=== PATIENT | male | born 2000 | race Caucasian/White ===

== ENCOUNTER → 2019-02-23 10:32 | Outpatient (CLI) | payer OTHER, SELFPAY ==
[2019-02-23 10:53] LABS: Influenza A and B by PCR Rapid Negative (Negative)
== END ==
PROVIDERS: Family Provider Physician Assistant; PCP Physician Assistant; Visit Provider Nurse Practitioner Family
DX: R50.9 Fever, unspecified (principal)
CPT/HCPCS: 87502

== ENCOUNTER → 2019-02-25 13:02 | Outpatient (CLI) | payer OTHER, SELFPAY ==
--- NOTE | 2019-02-25 13:05 | DI.CT.S_ITS ---
PROCEDURE: CT SOFT TISSUE NECK WO CON INDICATIONS: throat swelling /strep throat TECHNIQUE: Non-contrast 3.0 mm axial sections acquired from the sella to the aortic arch. Additional oblique axial 3.0 mm sections acquired through the pharynx. 3 mm thick coronal and sagittal reformats were generated. For radiation dose reduction, the following was used: automated exposure control. COMPARISON: None. FINDINGS: Image quality: Excellent. Lymph nodes: There are multiple enlarged cervical lymph nodes bilaterally. Vessels: Non-opacified vessels appear normal in caliber. Neck spaces: There is marked enlargement of adenoids and palatine tonsils. No drainable fluid collection. The oropharynx, nasopharynx, and pharynx demonstrate no mucosal lesions. The vocal cords, false vocal cords, pyriform sinuses, epiglottis, vallecula, and tongue base all appear normal. Extramucosal spaces appear unremarkable. Glands: The parotid and submandibular glands appear normal, without stones. Thyroid gland is normal. Miscellaneous: Visualized brain and orbits appear normal. Lung apices appear clear. Superficial soft tissues appear normal. IMPRESSION: 1. Enlargement of adenoids and palatine tonsils consistent with tonsillitis. There is no drainable fluid collections. 2. Cervical lymphadenopathy, most likely reactive. This finding is, however, nonspecific and may be secondary to infectious, inflammatory or neoplastic etiology. Recommend clinical correlation and follow up. Dictated by: Makayla Kim M.D. on 02/25/2019 at 14:10 Approved by: Makayla Kim M.D. on 02/25/2019 at 14:23
[2019-02-25 13:18] LABS: Add Manual Diff / Slide Review YES; Hematocrit 42.9 % (41-53); Hemoglobin 14.8 g/dL (13.5-17.5); Mean Corpuscular HGB Conc 34.6 % (30-36); Mean Corpuscular Hemoglobin 32.1 PG (26-34); Mean Corpuscular Volume 92.8 fL (80-100); Platelet Count 151 X10^3/uL (150-400); Red Blood Cell Count 4.63 X10^6/uL (4.5-5.9); Red Cell Distribution Width 12.9 % (11.6-14.8); White Blood Cell Count 14.9 X10^3/uL (4.5-11.0)
[2019-02-25 13:29] LABS: BUN Creatinine Ratio 10.8 (6-22); Blood Urea Nitrogen 14 mg/dL (9-20); Calcium 8.9 mg/dL (8.4-10.2); Carbon Dioxide 30 mmol/L (22-32); Chloride 100 mmol/L (98-107); Estimated Glomerular Filt Rate > 60.0 mL/min (>60); Glucose 117 mg/dL (70-100); HEMOLYSIS < 15 (0-50); Potassium 4.1 mmol/L (3.4-5.1); Sodium 140 mmol/L (137-145)
[2019-02-25 13:33] LABS: Neutrophils Absolute Manual 4321 /uL (3000-5900); Total Cells Counted 100
[2019-02-25 13:34] LABS: RBC Morphology Normal Morphology
== END ==
PROVIDERS: Family Provider Physician Assistant; PCP Physician Assistant; Visit Provider Hospitalist
DX: J02.0 Streptococcal pharyngitis (principal); J02.9 Acute pharyngitis, unspecified; J35.3 Hypertrophy of tonsils with hypertrophy of adenoids; R59.0 Localized enlarged lymph nodes
CPT/HCPCS: 36415; 70490; 80048; 85025

== ENCOUNTER 2019-02-25 13:49 | Emergency (ER) | payer OTHER, SELFPAY ==
[2019-02-25 14:15] VITALS: BP 130/73; PULSE 86; RESP 18; TEMP 39.2; O2SAT 100; BMI 30.6
--- NOTE | 2019-02-25 14:17 | ED_ITS ---
HPI - General Adult General Chief complaint: Neck Pain/Injury Stated complaint: mom thinks bacteria infection in throat Time Seen by Provider: 02/25/19 14:14 Source: patient and family Mode of arrival: Ambulatory Limitations: no limitations History of Present Illness HPI narrative: Otherwise healthy 18-year-old male sent over from his primary doctor's office for evaluation. For the past 5 days he has had a sore throat. Had large tonsils. Problems swallowing. Painful swallowing. Fevers. He has had 4 doses of amoxicillin up to this point provided by his primary doctor. Had a rapid strep test that was negative performed a couple days ago. His symptoms were not improving so he followed up with his primary doctor today. He had blood work done by his primary provider. Had a CBC which showed a white count of 14. A CT of the neck was also ordered as an outpatient. Is included in this no for reference purposes only. Related Data Home Medications Medication Instructions Recorded Confirmed acetaminophen 500 mg tablet 1,000 mg PO QID PRN 02/23/19 02/25/19 ibuprofen 200 mg tablet 400 mg PO Q6H PRN 02/23/19 02/25/19 Previous Rx's Medication Instructions Recorded amoxicillin 500 mg tablet 500 mg PO BID #20 tab 02/23/19 amoxicillin 250 mg-potassium 10 ml PO Q8H #150 ml 02/25/19 clavulanate 62.5 mg/5 mL oral suspension prednisone 20 mg tablet 40 mg PO DAILY #8 tab 02/25/19 Allergies Allergy/AdvReac Type Severity Reaction Status Date / Time animal dander [ANIMAL DANDER] Allergy Mild SNEEZING/STUFFY Verified 02/25/19 11:55 NOSE Review of Systems Constitutional Constitutional: Reports fatigue, Reports fever(s), Reports lethargy and Reports malaise ENT Ears, Nose, Mouth, and Throat: Denies vertigo, Denies dizziness, Denies facial pain, Denies lip swelling, Reports neck pain, Reports sinus pressure, Reports sore throat, Reports throat swelling and Denies tongue swelling Cardiovascular Cardiovascular: Denies chest pain and Denies dyspnea Respiratory Respiratory: Denies dyspnea Gastrointestinal Gastrointestinal: Denies abdominal pain, Denies nausea and Denies vomiting Genitourinary Genitourinary: Denies dysuria Musculoskeletal Musculoskeletal: Reports myalgias, Denies arthralgias and Reports neck pain Integumentary/Breasts Skin/Breast: Denies lesions and Denies rash Neurologic Neurologic: Denies behavioral changes, Denies vertigo and Denies dizziness Psychiatric Psychiatric: Denies behavioral changes Endocrine Endocrine: Reports fatigue Hematologic/Lymphatic Hematologic/Lymphatic: Denies easy bleeding and Denies easy bruising Allergic/Immunologic Allergic/Immunologic: Denies lip swelling, Reports throat swelling and Denies tongue swelling Patient History Medical History No known health problems (04/02/11) Social History Smoking Status: Never smoker Exam Initial Vital Signs Initial Vital Signs: Vital Signs Temperature 102.6 F H 02/25/19 14:15 Pulse Rate 86 02/25/19 14:15 Respiratory Rate 18 02/25/19 14:15 Blood Pressure 130/73 02/25/19 14:15 Pulse Oximetry 100 02/25/19 14:15 Const General: cooperative, well developed and well groomed Orientation: alert, awake and oriented x3 HENMT Head: normal to inspection and normocephalic Ears: TM abnormal bulging Nose: external nose normal Teeth and gingiva: dentition normal Throat: tonisls abnormal, uvula midline and abnormal tonsil (Enlarged without exudates) bilaterally Neck Lymphatic: lymphadenopathy (Left posterior cervical) Resp Effort & Inspection: normal respiratory effort Auscultation: clear to auscultation bilaterally Cardio Rate: regular rate Rhythm: regular rhythm Skin Lesions: no lesions Rashes: no rashes Neuro General: alert, awake and oriented x3 Cognition: normal cognition Speech: speech normal Motor: muscle tone normal throughout Sensory Exam: no sensory deficits noted Extrem General: normal to inspection and capillary refill normal Psych Appearance: grossly normal and well kempt Course Orders Ordered: ED Orders 02/25/19 14:35 Monotest Stat 02/25/19 15:10 Throat Culture Stat 02/25/19 16:25 Strep Grp A by PCR Rapid Stat Discontinued Medications Acetaminophen (Tylenol) 975 mg PO NOW ONE Stop: 02/25/19 14:17 Last Admin: 02/25/19 14:22 Dose: Not Given Documented by: OLVIN Acetaminophen (Tylenol Susp) 975 mg PO NOW ONE Stop: 02/25/19 14:23 Last Admin: 02/25/19 14:26 Dose: 975 mg Documented by: OLVIN Dexamethasone (Decadron) 10 mg IV NOW ONE Stop: 02/25/19 14:30 Last Admin: 02/25/19 14:42 Dose: 10 mg Documented by: OLVIN Sodium Chloride (Normal Saline 0.9%) 1,000 mls @ 1,000 mls/hr IV BOLUS ONE Stop: 02/25/19 15:28 Last Infusion: 02/25/19 16:00 Dose: 0 mls/hr Documented by: Admin: 02/25/19 14:41 Dose: 1,000 mls/hr Documented by: OLVIN Sodium Chloride (Normal Saline 0.9%) 1,000 mls @ 1,000 mls/hr IV BOLUS ONE Stop: 02/25/19 16:22 Last Infusion: 02/25/19 17:14 Dose: 0 mls/hr Documented by: Admin: 02/25/19 16:15 Dose: 1,000 mls/hr Documented by: OLVIN Ketorolac Tromethamine (Toradol) 30 mg IV NOW ONE Stop: 02/25/19 15:24 Last Admin: 02/25/19 16:16 Dose: 30 mg Documented by: OLVIN Vital Signs Vital signs: Vital Signs - 8 hr 02/25/19 14:15 02/25/19 16:18 02/25/19 17:14 Temperature 102.6 F H 101.9 F H 100.5 F H Pulse Rate 86 75 Respiratory Rate 18 14 Blood Pressure 130/73 Blood Pressure [Left Arm] 125/59 L Pulse Oximetry 100 99 02/25/19 17:15 Temperature Pulse Rate 70 Respiratory Rate 18 Blood Pressure Blood Pressure [Left Arm] 122/78 Pulse Oximetry 98 Medical Decision Making Lab Data Lab results reviewed: Yes I reviewed the patient's lab results. Labs: Lab Results 02/25/19 Range/Units 14:35 Monoscreen Negative (Negative) Imaging Data CT soft tissue neck: Radiologist's impression: [address] [address] [address] Scan Report Signed Patient: Brady Dhillon GMR#: [id number] : 2000Acct:[id number] Age/Sex: 18 / MDate of Service: 02/25/19 Loc: CT Accession Number: [id number] Procedure: CT soft tissue neck wo con Ordering Provider: Ashley Velez MD PROCEDURE: CT SOFT TISSUE NECK WO CON INDICATIONS: throat swelling /strep throat TECHNIQUE: Non-contrast 3.0 mm axial sections acquired from the sella to the aortic arch. Additional oblique axial 3.0 mm sections acquired through the pharynx. 3 mm thick coronal and sagittal reformats were generated. For radiation dose reduction, the following was used: automated exposure control. COMPARISON: None. FINDINGS: Image quality: Excellent. Lymph nodes: There are multiple enlarged cervical lymph nodes bilaterally. Vessels: Non-opacified vessels appear normal in caliber. Neck spaces: There is marked enlargement of adenoids and palatine tonsils. No drainable fluid collection. The oropharynx, nasopharynx, and pharynx demonstrate no mucosal lesions. The vocal cords, false vocal cords, pyriform sinuses, epiglottis, vallecula, and tongue base all appear normal. Extramucosal spaces appear unremarkable. Glands: The parotid and submandibular glands appear normal, without stones. Thyroid gland is normal. Miscellaneous: Visualized brain and orbits appear normal. Lung apices appear clear. Superficial soft tissues appear normal. IMPRESSION: 1. Enlargement of adenoids and palatine tonsils consistent with tonsillitis. There is no drainable fluid collections. 2. Cervical lymphadenopathy, most likely reactive. This finding is, however, nonspecific and may be secondary to infectious, inflammatory or neoplastic etiology. Recommend clinical correlation and follow up. Dictated by: Makayla Kim M.D. on 02/25/2019 at 14:10 Approved by: Makayla Kim M.D. on 02/25/2019 at 14:23 [facility] Narrative Additional Information: Patient received 2 L of fluids, and also received Decadron and Toradol and Tylenol. After all this he did feel better. He was tolerating his secretions. Was able to take a small amount of a popsicle. No respiratory distress. He has a prescription for prednisone provided by his primary doctor which he will start tomorrow. He also has a prescription for Augmentin. Will have him stop the amoxicillin and start taking the Augmentin as directed. This was also prescribed by his primary provider. A throat culture was pending at the time of discharge however he is currently being treated for any potential strep throat. His mono test was negative however this was drawn less than 1 week since the onset of the symptoms. He did have 1 left-sided posterior cervical lymph node. Patient and family were given return precautions and follow-up instructions. They expressed understanding and agreement with plan. Discharge Plan Departure Patient Disposition: Home Clinical Impression: Pharyngitis Qualifiers: Pharyngitis/tonsillitis etiology: unspecified etiology Qualified Code(s): J02.9 - Acute pharyngitis, unspecified Discharge Date/Time: 02/25/19 17:30 Instructions: Sore Throat Activity Restrictions/Additional Instructions: You can start taking the prednisone tomorrow like we discussed. I recommend you stop the amoxicillin and start taking the amoxicillin/clavulanate as directed. Be sure to increase your fluid intake. Return to the emergency department for any new or worsening symptoms Prescriptions: No Action acetaminophen [Tylenol Extra Strength] 500 mg tablet 1,000 mg PO QID PRNRF: 0 ibuprofen 200 mg tablet 400 mg PO Q6H PRNRF: 0 amoxicillin 500 mg tablet 500 mg PO BID Qty: 20 RF: 0 amoxicillin-pot clavulanate 250-62.5 mg/5 mL suspension for reconstitution 10 ml PO Q8H Qty: 150 RF: 0 prednisone 20 mg tablet 40 mg PO DAILY Qty: 8 RF: 0 Referrals: Nadine Tsai PA-C [Primary Care Provider] -
[2019-02-25] MEDS: ACETAMINOPHEN SUSP 650 MG/20.3 ML UDC 975 MG PO (14:26)
[2019-02-25] MEDS: SODIUM CHLORIDE 0.9% 1,000 ML 1000 ML IV ×2 (14:41→16:15)
[2019-02-25] MEDS: DEXAMETHASONE 10 MG/ML VIAL IV (14:42)
[2019-02-25 14:48] LABS: Monotest Negative (Negative)
--- NOTE | 2019-02-25 14:51 | PC.NURSE ---
Pt w/ difficulty swallowing and slightly asymetric swallow. Difficulty swallowing own secretions w/ decreased po intake. Has been able to take amoxicillin. Fever x [address] pre ED visit. Given suction at bedside to assist. Airway patent and intact w/ easy work of breathing. Slightly nauseas, painful to speak.
[2019-02-25] MEDS: KETOROLAC 60 MG/2 ML VIAL 30 MG IV (16:16)
[2019-02-25 16:18] VITALS: BP 125/59; PULSE 75; RESP 14; TEMP 38.8; O2SAT 99
[2019-02-25 17:14] VITALS: TEMP 38.1
[2019-02-25 17:15] VITALS: BP 122/78; PULSE 70; RESP 18; O2SAT 98
== END 2019-02-25 17:30 | disposition home or self-care (01) ==
PROVIDERS: Emergency Provider Emergency Medicine; Family Provider Physician Assistant; PCP Physician Assistant
DX: J02.9 Acute pharyngitis, unspecified (principal); J35.3 Hypertrophy of tonsils with hypertrophy of adenoids; J02.0 Streptococcal pharyngitis
CPT/HCPCS: 36415; 70490; 80048; 85025; 86318; 87070; 96361; 96374; 96375; 99283; 99284; J1100; J1885